=== PATIENT | male | born 1990 | race African-American/Black ===

== ENCOUNTER 2020-04-04 03:15 | Emergency (ER) | payer OTHER ==
[~2020-04-04] VITALS: Ht 170.2 cm; Wt 71.4 kg
[2020-04-04] MEDS ORDERED: NON-325T5 PO (03:24)
[2020-04-04] MEDS ORDERED: metroNIDAZOLE (FLAGYL) 500MG TABLET As Ordered ONE (04:21)
[2020-04-04] MEDS ORDERED: AUGMENTIN 875 MG TAB As Ordered ONE (04:22)
[2020-04-04] MEDS ORDERED: FLAG500T PO (04:23)
[2020-04-04] MEDS ORDERED: AUGM500T34 PO (04:23)
[2020-04-04] MEDS ORDERED: NORCO 5/325MG TABLET (BULK FOR ED) PO ONE (04:30)
[2020-04-04] MEDS ORDERED: HYDROMORPHONE HCL 0.5 MG/ 0.5 ML SYRINGE (J1170 PER 1) IM ONE (04:30)
[2020-04-04] MEDS ORDERED: metroNIDAZOLE (FLAGYL) 500MG TABLET PO ONE (04:30)
[2020-04-04] MEDS ORDERED: AUGMENTIN 875 MG TAB PO ONE (04:30)
[2020-04-04 04:35] VITALS: BP 127/92
== END 2020-04-04 04:57 | disposition home or self-care (01) ==
LOC: M ED 03:15
DX: R68.84 Jaw pain (principal); K08.89 Other specified disorders of teeth and supporting structures
CPT/HCPCS: 96372; 99283; J1170

== ENCOUNTER 2021-07-17 02:25 | Emergency (ER) | payer OTHER ==
[~2021-07-17] VITALS: Ht 172.7 cm; Wt 63.5 kg
[~2021-07-17 02:25] MED LIST: ACET32TAB PO; AUGM500T34 PO; FLAG500T PO
--- OUTSIDE RECORDS SUMMARY | 2021-07-17 02:35 | CCD ---
Author Author [facility] Organization [facility] Address Unknown Phone Unavailable Support Name Relationship Address Phone KHARI WILCOX Next Of Kin [address] [place] [address] JEANSBEANS Next Of Kin [address] [place] [address] SMC* Next Of Kin [address] [place] [address] DORON TREVINO Next Of Kin [address] [place] [address] Re-disclosure Warning The records that you are about to access may contain information from federally-assisted alcohol or drug abuse programs. If such information is present, then the following federally mandated warning applies: This information has been disclosed to you from records protected by federal confidentiality rules (42 CFR part 2). The federal rules prohibit you from making any further disclosure of this information unless further disclosure is expressly permitted by the written consent of the person to whom it pertains or as otherwise permitted by 42 CFR part 2. A general authorization for the release of medical or other information is NOT sufficient for this purpose. The Federal rules restrict any use of the information to criminally investigate or prosecute any alcohol or drug abuse patient.The records that you are about to access may contain highly sensitive health information, the redisclosure of which is protected by Article 27-F of the [facility] Public Health law. If you continue you may have access to information: Regarding HIV / AIDS; Provided by facilities licensed or operated by the [facility] Office of Mental Health; or Provided by the [facility] Office for People With Developmental Disabilities. If such information is present, then the following [facility] mandated warning applies: This information has been disclosed to you from confidential records which are protected by state law. State law prohibits you from making any further disclosure of this information without the specific written consent of the person to whom it pertains, or as otherwise permitted by law. Any unauthorized further disclosure in violation of state law may result in a fine or mcfp sentence or both. A general authorization for the release of medical or other information is NOT sufficient authorization for further disc losure. Immunizations Vaccine Date Status Description Data Source(s) COVID-19 VACCINE [facility] 12/22/2020 12:00:00 AM EDT completed [facility] Vaccine Series Complete: YESThis Data wa s Submitted to [facility]. COVID-19 VACCINE [facility] 12/01/2020 12:00:00 AM EST completed [facility] Vaccine Series Complete: NOThis Data was Submitted to [facility]. Medications No Information Insurance Providers Payer name Policy type / Coverage type Policy ID Covered republican ID Covered republican's relationship to donovan Policy Donovan Plan Information [facility] [id number] SP [id number] [employer] [facility] [id number] SP [id number] [id number] [facility] [id number] SP [id number] [facility] [id number] SP [id number] SELF PAY ONLY [id number] SP [id number] 415 O UNAVAILABLE UNAVAILA BLE SELF PAY UNAVAILABLE SP UNAVAILA BLE Problems, Conditions, and Diagnoses No Information Surgeries/Procedures No Information Results No Information Social History No Information
--- OUTSIDE RECORDS SUMMARY | 2021-07-17 06:59 | CCD ---
Author Author [facility] Organization [facility] Address Unknown Phone Unavailable Support Name Relationship Address Phone KHARI WILCOX Next Of Kin [address] [place] [address] JE[employer]BEANS Next Of Kin [address] [place] [address] SMC* Next Of Kin [address] [place] [address] DORON TREVINO Next Of Kin [address] [place] [address] Re-disclosure Warning The records that you are [...] is protected by Article 27-F of the [facility] Public Health law. If you continue you may have access to information: Regarding HIV / AIDS; Provided by facilities licensed or operated by the [facility] Office of Mental Health; or Provided by the [facility] Office for People With Developmental Disabilities. If such information is present, then the following [facility] mandated warning applies: This information has [...] law may result in a fine or correction sentence or both. A general authorization for the release of medical or other information is NOT sufficient authorization for further disc losure. Immunizations Vaccine Date Status Description Data Source(s) COVID-19 VACCINE [facility]OCS 12/22/2020 12:00:00 AM EDT completed [facility] Vaccine Series Complete: YESThis Data wa s Submitted to [facility] [address]. COVID-19 VACCINE ASOCS 12/01/2020 12:00:00 AM EST completed [facility] Vaccine Series Complete: NOThis Data was Submitted to [facility] [address]. Medications No Information Insurance Providers Payer name Policy type / Coverage type Policy ID Covered libertarian ID Covered libertarian's relationship to donovan Policy Donovan Plan Information [facility] [id number] SP [id number] [employer] [facility] [id number] SP [id number] [employer] [facility] [id number] SP [id number] [facility] [id number] SP [id number] SELF PAY ONLY [id number] SP [id number] 415 O UNAVAILABLE UNAVAILA BLE SELF PAY UNAVAILABLE SP UNAVAILA BLE Problems, Conditions, and Diagnoses No Information Surgeries/Procedures No Information Results No Information Social History No Information
[2021-07-17] MEDS ORDERED: ALBUTEROL 90 MCG/ACT 8GM HFA INHALER INH ONE (07:00)
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
[2021-07-17] MEDS ORDERED: AUGM875T28 PO (09:04)
[2021-07-17] MEDS ORDERED: ACETAMINOPHEN 325 MG TAB PO ONE (09:10)
[2021-07-17] MEDS ORDERED: AUGMENTIN 875 MG TAB PO ONE (09:10)
[2021-07-17 09:37] VITALS: BP 158/98
== END 2021-07-17 09:40 | disposition home or self-care (01) ==
LOC: M ED 02:25
DX: S01.512A Laceration without foreign body of oral cavity, initial encounter (principal); Y04.0XXA Assault by unarmed brawl or fight, initial encounter; Y92.9 Unspecified place or not applicable; Y93.9 Activity, unspecified; Y99.9 Unspecified external cause status; Z91.030 Bee allergy status

== ENCOUNTER → 2021-09-09 | Outpatient (CLI) | payer MEDICAID ==
[~2021-09-09] MED LIST changes: +AUGM875T28 PO
== END ==
LOC: M OUTALCOH 07:52
PROVIDERS: ATTEND Psychiatry & Neurology Psychiatry
DX: Z13.39 Encounter for screening examination for other mental health and behavioral disorders (principal); F12.10 Cannabis abuse, uncomplicated

== ENCOUNTER 2022-03-22 19:13 | Emergency (ER) | payer BC, MEDICAID ==
[~2022-03-22] VITALS: Ht 170.2 cm; Wt 67.3 kg
[2022-03-22] MEDS ORDERED: LIDOCAINE 5% (LIDODERM) PATCH TD ONE (20:45)
[2022-03-22] MEDS ORDERED: methocarbamoL 750 MG TAB PO ONE (20:45)
[2022-03-22] MEDS ORDERED: KETOROLAC 60MG 2ML VIAL IM ONE (20:45)
[2022-03-22] MEDS ORDERED: **NOTE PATIENT COMMENT** MISC XX SCH (21:00)
[2022-03-22] MEDS ORDERED: ASPE4PAD TOP (22:38)
[2022-03-22 22:57] VITALS: BP 150/100
[2022-03-23] MEDS ORDERED: **NOTE PATIENT COMMENT** MISC XX ONE (09:00)
== END 2022-03-22 23:07 | disposition home or self-care (01) ==
LOC: M ED 19:13
DX: M54.2 Cervicalgia (principal); M54.50 Low back pain, unspecified; M54.6 Pain in thoracic spine; Z91.030 Bee allergy status; F17.200 Nicotine dependence, unspecified, uncomplicated
CPT/HCPCS: 72125; 72128; 72131; 96372; 99284; J1885

== ENCOUNTER 2022-05-20 17:32 | Emergency (ER) | payer BC, OTHER ==
[~2022-05-20] VITALS: Ht 170.2 cm; Wt 64.4 kg
[~2022-05-20 17:32] MED LIST changes: +ASPE4PAD TOP
[2022-05-20 20:01] VITALS: BP 184/111
[2022-05-20] MEDS ORDERED: LISI10TA22 PO (20:03)
== END 2022-05-20 20:06 | disposition home or self-care (01) ==
LOC: M ED 17:32
DX: I10 Essential (primary) hypertension (principal); S50.812A Abrasion of left forearm, initial encounter; X58.XXXA Exposure to other specified factors, initial encounter; Y92.89 Other specified places as the place of occurrence of the external cause; M25.521 Pain in right elbow; Z91.030 Bee allergy status; Z79.899 Other long term (current) drug therapy

== ENCOUNTER 2023-07-09 20:48 | Emergency (ER) | payer OTHER ==
[~2023-07-09] VITALS: Ht 170.2 cm; Wt 67.8 kg
[~2023-07-09 20:48] MED LIST changes: +LISI10TA22 PO
[2023-07-09 20:49] VITALS: BP 181/88; TEMP 98.9; O2SAT 99
[2023-07-09] MEDS ORDERED: CYCL5TAB (20:55)
[2023-07-09] MEDS ORDERED: NAPR500T6 PO (20:55)
[2023-07-09] MEDS ORDERED: AMOX500C (20:56)
[2023-07-09] MEDS ORDERED: DIPH-435 PO (20:58)
== END 2023-07-09 22:48 | disposition left against medical advice (07) ==
LOC: M ED 20:48
DX: Z53.21 Procedure and treatment not carried out due to patient leaving prior to being seen by health care provider (principal)

== ENCOUNTER 2023-08-18 13:16 | Emergency (ER) | payer OTHER ==
[~2023-08-18] VITALS: Ht 170.2 cm; Wt 67.7 kg
[~2023-08-18 13:16] MED LIST changes: +AMOX500C; +CYCL5TAB; +DIPH-435 PO; +NAPR500T6 PO
[2023-08-18 13:25] VITALS: BP 159/98; TEMP 97.7; O2SAT 96
== END 2023-08-18 13:46 | disposition left against medical advice (07) ==
LOC: M ED 13:16
DX: F10.10 Alcohol abuse, uncomplicated (principal); Z53.9 Procedure and treatment not carried out, unspecified reason; I10 Essential (primary) hypertension; Z79.899 Other long term (current) drug therapy; Z88.6 Allergy status to analgesic agent; Z91.030 Bee allergy status

== ENCOUNTER 2024-05-24 05:19 | Emergency (ER) | payer OTHER ==
[~2024-05-24] VITALS: Ht 170.2 cm; Wt 66.2 kg
[2024-05-24 06:04] LABS: BASO # 0.1 10^3/uL (0.0-0.2); BASO % 0.7 % (0.0-1.0); EOS # 0.1 10^3/uL (0.0-0.5); EOS % 1.4 % (0.0-3.0); HEMATOCRIT 45.7 % (42.0-52.0); HEMOGLOBIN 15.8 g/dl (13.5-17.5); LYMPH # 2.8 10^3/uL (1.5-5.0); LYMPH % 33.5 % (24.0-44.0); MEAN CORPUSCULAR HEMOGLOBIN 31.7 pg (27.0-33.0); MEAN CORPUSCULAR HGB CONC 34.6 g/dl (32.0-36.5); MEAN CORPUSCULAR VOLUME 91.6 fl (80.0-96.0); MONO # 0.4 10^3/uL (0.0-0.8); MONO % 5.2 % (2.0-8.0); NEUTROPHILS # 4.9 10^3/uL (1.5-8.5); NEUTROPHILS % 59.1 % (36.0-66.0); PLATELET COUNT, AUTOMATED 330 10^3/uL (150-450); RED BLOOD COUNT 4.99 10^6/uL (4.30-6.10); WHITE BLOOD COUNT 8.3 10^3/uL (4.0-10.0)
[2024-05-24 06:27] LABS: ALBUMIN 5.1 G/DL (3.2-5.2); ALKALINE PHOSPHATASE 90 U/L (46-116); ALT/SGPT 40 U/L (7.0-40); AST/SGOT 49 U/L (<34); BILIRUBIN,DIRECT 0.4 MG/DL (<0.4); BILIRUBIN,TOTAL 1.1 MG/DL (0.3-1.2); BLOOD UREA NITROGEN 8 MG/DL (9-23); CALCIUM LEVEL 9.8 MG/DL (8.5-10.1); CARBON DIOXIDE LEVEL 29 MMOL/L (20-31); CHLORIDE LEVEL 104 MMOL/L (98-107); CREATININE FOR GFR 0.77 MG/DL (0.70-1.30); GLOMERULAR FILTRATION RATE > 60.0 (>60); GLUCOSE, FASTING 109 MG/DL (60-100); POTASSIUM SERUM 3.1 MMOL/L (3.5-5.1); SODIUM LEVEL 141 MMOL/L (136-145); TOTAL PROTEIN 8.7 G/DL (5.7-8.2)
[2024-05-24 06:32] LABS: APPEARANCE, URINE CLEAR (CLEAR); BACTERIA, URINE AUTO NEGATIVE (NEGATIVE); BILIRUBIN, URINE AUTO NEGATIVE (NEGATIVE); BLOOD, URINE BLOOD NEGATIVE (NEGATIVE); COLOR, URINE YELLOW (YELLOW); GLUCOSE, URINE (UA) AUTO NEGATIVE (NEGATIVE); KETONE, URINE AUTO NEGATIVE (NEGATIVE); LEUKOCYTE ESTERASE, URINE AUTO NEGATIVE (NEGATIVE); MUCUS, URINE SMALL (NEGATIVE); NITRITE, URINE AUTO NEGATIVE (NEGATIVE); PROTEIN, URINE AUTO 1+ mg/dL (NEGATIVE); RBC, URINE AUTO 1 /HPF (0-3); SPECIFIC GRAVITY URINE AUTO 1.018 (1.002-1.035); SQUAMOUS EPITHELIAL CELL UR AU 0 /HPF (0-6); WBC, URINE AUTO 0 /HPF (0-3)
[2024-05-24] MEDS: POTASSIUM CHLORIDE 10MEQ SR TABLET PO ONE (07:55)
[2024-05-24 08:41] VITALS: BP 180/108
[2024-05-24] MEDS: **hydrALAZINE** 10 MG TAB PO ONE (08:41)
[2024-05-24] MEDS ORDERED: LISI20TA33 PO (10:20)
[2024-05-24 10:46] VITALS: BP 178/109; TEMP 98.5; O2SAT 100
== END 2024-05-24 10:48 | disposition home or self-care (01) ==
LOC: M ED 05:19
DX: I10 Essential (primary) hypertension (principal); R00.0 Tachycardia, unspecified; F10.10 Alcohol abuse, uncomplicated; F12.10 Cannabis abuse, uncomplicated; F17.200 Nicotine dependence, unspecified, uncomplicated; Z91.030 Bee allergy status; Z88.6 Allergy status to analgesic agent; Z79.811 Long term (current) use of aromatase inhibitors